=== PATIENT | male | born 1985 | race Caucasian/White ===

== ENCOUNTER 2024-05-07 15:57 | Emergency (ER) | payer OTHER ==
[~2024-05-07] VITALS: Ht 180.3 cm; Wt 79.4 kg
[2024-05-07 16:35] VITALS: BP_SYST 135; PULSE 68; RESP 18; TEMP 97.6; O2SAT 96
[2024-05-07] MEDS ORDERED: MORPHINE 4 MG INJ. 4 MG/ML VIAL IVP ONE ×2 (19:15→21:00)
[2024-05-07] MEDS: NACL 0.9% 1,000 ML IV ONE (20:22)
[2024-05-07] MEDS: KETOROLAC TROMETHAMINE 30 MG VIAL IVP ONE (20:24)
[2024-05-07] MEDS ORDERED: NAPR-1172 PO (21:39)
[2024-05-07] MEDS ORDERED: TRAM50TA2 PO (21:39)
[2024-05-07 21:46] VITALS: BP_SYST 133; PULSE 76; RESP 18; TEMP 98.4; O2SAT 100
== END 2024-05-07 21:46 | disposition home or self-care (01) ==
LOC: SED 15:57
DX: S39.012A Strain of muscle, fascia and tendon of lower back, initial encounter (principal); R10.9 Unspecified abdominal pain; R53.1 Weakness; X58.XXXA Exposure to other specified factors, initial encounter; Y93.89 Activity, other specified; Y92.89 Other specified places as the place of occurrence of the external cause; Y99.8 Other external cause status
CPT/HCPCS: 99285; 96374; 72131; 96361; J1885; J7030